=== PATIENT | female | born 1950 | race Caucasian/White ===

== ENCOUNTER 2017-04-16 14:25 | Emergency (ER) | payer BC, OTHER ==
[~2017-04-16] VITALS: Ht 162.6 cm; Wt 56.0 kg
[2017-04-16 14:31] VITALS: Ht 162.6 cm; Wt 56.0 kg
--- NOTE | 2017-04-16 16:40 | ERD ---
ER Documentation Chief Complaint Date/Time DATE: 04/16/17 TIME: 16:33 Chief Complaint RECENT FALL DUE TO SUDDEN ONSET OF LOWER EXTREMITIES WEAKNESS HPI This is a 66-year-old female who presents to the emergency department today for some weakness in her left lower extremity. Patient states that for the past 8 months she has had dropfoot. States it caused her to fall last night. States that 2 years ago she had a knee injury when she fell while walking her dog. States she has tried to see multiple doctors but is told that these doctors are not in her network. States that she was told she did not need to go to physical therapy. States that she think she has an appointment with a neurologist but not until May. States she has seen a orthopedist and was told by an MRI that she has herniated disks. States that she fell because of her foot problem. Denies any headache, dizziness, blurred vision, fevers or chills, loss of bowel or bladder control. Denies any loss of consciousness. ROS All systems reviewed and are negative except as per history of present illness. Allergies Allergies: Coded Allergies: No Known Allergy (Unverified , 04/16/17) PMhx/Soc Medical and Surgical Hx: pt denies Surgical Hx History of Surgery: No Anesthesia Reaction: No Hx Neurological Disorder: No Hx Respiratory Disorders: No Hx Cardiac Disorders: No Hx Psychiatric Problems: No Hx Miscellaneous Medical Probl: Yes (SEPSIS) Hx Alcohol Use: No Hx Substance Use: No Hx Tobacco Use: No Smoking Status: Never smoker Physical Exam Vitals Vital Signs Date Time Temp Pulse Resp B/P Pulse Ox O2 Delivery O2 Flow Rate FiO2 04/16/17 14:31 98.3 96 18 134/87 97 Physical Exam Const: Talkative, no acute distress Head: Atraumatic. PERRLA. EOM intact. Eyes: Normal Conjunctiva ENT: Normal External Ears, Nose and Mouth. Neck: Full range of motion..~ No meningismus. Resp: Clear to auscultation bilaterally Cardio: Regular rate and rhythm, no murmurs Abd: Soft, non tender, non distended. Normal bowel sounds Skin: No petechiae or rashes Back: No midline or flank tenderness Ext: No cyanosis, or edema Neur: Awake and alert. Cranial nerves II through XII intact. Walks with antalgic gait and dropfoot left foot Psych: Normal Mood and Affect Procedures/MDM This 66-year-old female who presents to the emergency department today for concern of her dropfoot that is been ongoing for the past 8 months. Patient did indicate that it caused her to fall however she denies any loss of consciousness, headache, dizziness or blurred vision. Patient has no focal neurologic deficits and I have low suspicion that she is having a acute hemorrhage, abscess, mass or meningitis. Patient indicated that he was here in the emergency room because she thought that there would be a neurology specialist here that she would be able to see to get further testing done. I have explained to her that she would need to see a neurologist as an outpatient follow-up. Patient understood The remainder of patient's neurological exam is benign with the exception of her dropfoot in her left foot. Patient does have some decreased sensation there. She is afebrile and otherwise well-appearing. Upon review of patient's medical records that she brought with her she does have evidence of degenerative disc disease and disc space narrowing and some spinal stenosis at L4 and 5 as well as some osteophytes present. Patient denied any loss of bowel or bladder control and of low suspicion that she has cauda equina. Do not feel the patient requires laboratory workup at this time. Low suspicion for sepsis, meningitis, acute cause of drop foot. Patient symptoms at this time is consistent with dropfoot. I explained her that she does need to see a neurologist. I explained her that she should try to be seen sooner than May and have also given her a list of resources in the area for neurology. Patient's primary doctor is Dr. Mckeon. I did offer patient crutches to help ambulate however she declined at this time. I explained to the patient that she would benefit from wearing shoes proper footwear and not sandals. Patient understood. She is also instructed to wear her brace that she has and try to make an appointment for physical therapy. At this time the patient is stable for discharge and outpatient management. Patient should follow up with their PCP in the next 1-2 days. They may return to the emergency department sooner for any persistent or worsening of symptoms. Patient understood and agreed with the plan. Discussed the patient with Dr. Odell and he is in agreement with the plan. Departure Diagnosis: Primary Impression: Foot drop Laterality: left Qualified Code: M21.372 - Left foot drop Condition: Fair Patient Instructions: Foot Drop Referrals: LEONEL DE SANTIAGO MD,JM MAGANA,ANKITA BUTLER MD, MD, ANDREW M MD HIJAZIN,NESTOR NARVAEZ,KENNA HENRIQUEZ,BETINA TOWNSEND,DARRIUS CARRILLO,EULALIA NOYOLA,MACK TRACY,NOBLE CHOWDARY,CANDIE Hernández MD Additional Instructions: Call your primary care doctor TOMORROW for an appointment during the next 1-2 days.See the doctor sooner or return here if your condition worsens before your appointment time. Make an appointment with your neurologist and try to be seen sooner Wear proper footwear Wear brace as prescribed AISHWARYA URIAS PA-C Apr 16, 2017 16:40
== END 2017-04-16 16:48 | disposition home or self-care (01) ==
LOC: FTE 14:25
DX: M21.372 Foot drop, left foot (principal)
CPT/HCPCS: 99282